=== PATIENT | female | born 2000 | race Caucasian/White ===

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

== ENCOUNTER → 2020-01-19 | Outpatient (CLI) | payer OTHER ==
[~2020-01-19] MED LIST: ACET-716 PO; ALBU17IN2 INH; [UNRECOGNIZED DRUG - OTHER]; bcp
--- NOTE | 2020-01-19 11:48 | REP ---
ULTRASOUND LEFT BREAST: HISTORY: Tender lump upper outer quadrant in the region of 2-o'clock position. Real-time sonographic evaluation of the left breast performed in the upper outer quadrant at the site of the tender lump. Fibroglandular tissue is seen with no discrete cystic or solid nodule. IMPRESSION: ACR 1 negative ultrasound left breast. No cystic or solid mass seen in the upper outer quadrant at the site of a tender lump. Clinical correlation and followup recommended.
== END ==
LOC: M WHC 06:59
PROVIDERS: ATTEND Physician Assistant
DX: N63.21 Unspecified lump in the left breast, upper outer quadrant (principal)

== ENCOUNTER → 2020-11-07 | Outpatient (REF) | payer OTHER ==
[2020-11-07 11:48] LABS: APPEARANCE, URINE CLEAR (CLEAR); BACTERIA, URINE AUTO 2+ (NEGATIVE); BILIRUBIN, URINE AUTO NEGATIVE (NEGATIVE); BLOOD, URINE BLOOD NEGATIVE (NEGATIVE); COLOR, URINE STRAW (YELLOW); GLUCOSE, URINE (UA) AUTO NEGATIVE (NEGATIVE); KETONE, URINE AUTO NEGATIVE (NEGATIVE); LEUKOCYTE ESTERASE, URINE AUTO TRACE (NEGATIVE); NITRITE, URINE AUTO NEGATIVE (NEGATIVE); PROTEIN, URINE AUTO NEGATIVE (NEGATIVE); RBC, URINE AUTO 1 /HPF (0-3); SPECIFIC GRAVITY URINE AUTO 1.005 (1.002-1.035); SQUAMOUS EPITHELIAL CELL UR AU 2 /HPF (0-6); UROBILINOGEN, URINE AUTO 0.2 mg/dL (0.0-2.0); WBC, URINE AUTO 1 /HPF (0-3)
== END ==
LOC: M LAB REF 11:14
PROVIDERS: ATTEND Physician Assistant Medical
DX: N39.0 Urinary tract infection, site not specified (principal)